=== PATIENT | female | born 1940 | race Caucasian/White ===

== ENCOUNTER 2019-06-01 10:01 | Inpatient (IN) | payer MEDICARE, BC, MEDICAID ==
[2019-06-01] MEDS ORDERED: cefTRIAXone 2 GM Vial IVPUSH ONE (11:19)
[2019-06-01 11:21] LABS: ANION GAP 14.4 mmol/L (10-20); CHLORIDE,CL 105 mmol/L (98-107); SODIUM,NA 144 mmol/L (136-145)
[2019-06-01] MEDS ORDERED: Sodium Chloride 0.9% 1,000 ML IV ONE (11:51)
--- NOTE | 2019-06-01 11:55 | CR ---
[id number] RAD/RAD Chest PA or AP 1V EXAM: RAD Chest PA or AP 1V INDICATION: WEAKNESS. COMPARISON: None. DISCUSSION: Cardiomediastinal silhouette is normal in size and contour. No infiltrate, effusion, pneumothorax, or edema. IMPRESSION: Negative examination of the chest. Nick Humphrey MD 06/01/19 1154 Thank you for allowing us to participate in the care of your patient.
--- NOTE | 2019-06-01 12:00 | EDM.PDOC ---
ED HPI GENERAL MEDICAL PROBLEM - General Chief Complaint: General Stated Complaint: NOT FEELING WELL Time Seen by Provider: 06/01/19 10:22 Source of Information: Reports: Patient History Limitations: Reports: No Limitations - History of Present Illness INITIAL COMMENTS - FREE TEXT/NARRATIVE: Pt. presents to ER with complaints of weakness and not feeling well. Pt. called 911 as she was unable to get up and ambulate on her own. Pt. lives by herself in an apartment. EMS and PD staff relate that the living conditions were unsanitary at the residence. Pt. was notably confused, unable to find words and globally weak but did not have any focal findings such as unilateral weakness, facial droop, or pronator drift. Pt. states that she has been feeling poorly for several days. She had been soiling herself as she had been unable to get up to use the toilet. Pt. denies any chest pain or shortness of breath. No abdominal pain. No nausea, vomiting, or diarrhea. Denies any neck stiffness. No sore throat or dental pain. Location: Reports: Lower Extremity, Right, Generalized - Related Data Allergies Allergy/AdvReac Type Severity Reaction Status Date / Time No Known Allergies Allergy Verified 06/04/16 10:54 Home Meds: Home Meds Alendronate Sodium [Fosamax] 70 mg PO WEEKLY 06/04/16 [History] Aspirin [Halfprin] 81 mg PO DAILY 06/04/16 [History] Canagliflozin [Invokana] 300 mg PO DAILY 06/04/16 [History] Cholecalciferol (Vitamin D3) [Vitamin D3] 2,000 units PO DAILY 06/04/16 [History ] Fish Oil/[place]-3 Fatty Acids [Fish Oil 1,000 MG] 1,000 mg PO DAILY 06/04/16 [ History] Lisinopril 20 mg PO DAILY 06/04/16 [History] Nystatin [Nystatin Crm] 1 applic TOP BID 06/04/16 [History] SitaGLIPtin [Januvia] 100 mg PO DAILY 06/04/16 [History] glipiZIDE [Glipizide ER] 10 mg PO BID 06/04/16 [History] metFORMIN HCl [Metformin HCl] 1,000 mg PO BID 06/04/16 [History] Past Medical History HEENT History: Reports: Cataract, Other (See Below) Other HEENT History: PRESBYOPIA, ASTIGMATISM, MYOPIA, POOR DENTITION Cardiovascular History: Reports: High Cholesterol, Hypertension Genitourinary History: Reports: Other (See Below) Other Genitourinary History: URINARY FREQUENCY Musculoskeletal History: Reports: Osteoporosis Neurological History: Reports: Neuropathy, Diabetic, Other (See Below) Other Neuro History: COGNITIVE IMPAIRMENT Endocrine/Metabolic History: Reports: Diabetes, Type II Hematologic History: Reports: Anemia, Iron Deficiency Dermatologic History: Reports: Eczema, Other (See Below) Other Dermatologic History: CONTACT DERMATITS. DYSTROPHIC NAIL, - Past Surgical History Musculoskeletal Surgical History: Reports: Other (See Below) Other Musculoskeletal Surgeries/Procedures:: OPEN REDUCTION INTERNAL FIXATION OF HUMERUS ED ROS GENERAL - Review of Systems Review Of Systems: See Below Constitutional: Reports: No Symptoms HEENT: Reports: Other (Poor dentition, denies any dental of throat pain) Respiratory: Reports: No Symptoms Cardiovascular: Reports: No Symptoms Endocrine: Reports: No Symptoms GI/Abdominal: Reports: No Symptoms. Denies: Diarrhea, Hematemesis, Hematochezia , Melena : Reports: No Symptoms Musculoskeletal: Reports: No Symptoms Skin: Reports: No Symptoms Neurological: Reports: Confusion, Weakness Psychiatric: Reports: No Symptoms Hematologic/Lymphatic: Reports: No Symptoms Immunologic: Reports: No Symptoms ED EXAM, GENERAL - Physical Exam Exam: See Below Exam Limited By: No Limitations General Appearance: Alert, WD/WN, No Apparent Distress Eye Exam: Bilateral Eye: EOMI, Normal Fundi, Normal Inspection, PERRL Ears: Normal External Exam, Normal TMs (dermatitis to both canals) Ear Exam: Bilateral Ear: Auricle Normal, TM normal Nose: Normal Inspection, Normal Mucosa, No Blood Throat/Mouth: Other (severe decay to numerous teeth. No obvious abscess formation. Hypopharynx is normal. Cheeks are flushed) Head: Atraumatic, Normocephalic Neck: Normal Inspection, Supple, Non-Tender, Full Range of Motion, Other (No neuchal rigidity) Respiratory/Chest: No Respiratory Distress Cardiovascular: Normal Peripheral Pulses Peripheral Pulses: 3+: Dorsalis Pedis (L), Dorsalis Pedis (R), 4+: Radial (L), Radial (R) GI/Abdominal: Normal Bowel Sounds, Soft, Non-Tender, No Organomegaly, No Distention, No Mass (Female) Exam: Deferred Rectal (Female) Exam: Deferred Back Exam: Normal Inspection, Full Range of Motion Extremities: Normal Inspection, Normal Range of Motion, Non-Tender, No Pedal Edema, Normal Capillary Refill Neurological: Alert, Oriented, CN II-XII Intact, Normal Cognition, Normal Gait, Normal Reflexes, No Motor/Sensory Deficits Psychiatric: Normal Affect, Normal Mood Skin Exam: Warm, Dry, Intact, Normal Color, No Rash Lymphatic: No Adenopathy EKG INTERPRETATION Rhythm: NSR Crescent: Normal P-Wave: Present QRS: Normal ST-T: Normal QT: Normal Course - Orders/Labs/Meds Orders: Active Orders 24 hr Category Date Time Status EKG Documentation Completion [RC] STAT Care 06/01/19 10:25 Active Chest 1V Frontal [CR] Stat Exams 06/01/19 10:26 Taken CULTURE BLOOD [BC] Stat Lab 06/01/19 10:38 Received CULTURE BLOOD [BC] Stat Lab 06/01/19 10:47 Received Sodium Chloride 0.9% [Normal Saline] 1,000 ml Med 06/01/19 11:51 Ordered IV ASDIRECTED Blood Culture x2 Reflex Set [OM.PC] Stat Oth 06/01/19 10:26 Ordered Medication Orders Sodium Chloride (Normal Saline) 1,000 mls @ 150 mls/hr IV ASDIRECTED ONE Stop: 06/01/19 18:30 Labs: Laboratory Tests 06/01/19 06/01/19 06/01/19 Range/Units 10:20 10:38 10:38 WBC 12.4 H (4.0-10.0) x10^3/uL RBC 5.16 (4.00-5.50) x10^6/uL Hgb 15.9 (12.0-16.0) g/dL Hct 47.8 H (33.0-47.0) % MCV 92.6 (78.0-93.0) fL MCH 30.8 (26.0-32.0) pg MCHC 33.3 (32.0-36.0) g/dL RDW Coeff of Pauline 12.9 (10.0-15.0) % Plt Count 247 (130-400) x10^3/uL Neut % (Auto) 88.4 H (50.0-80.0) % Lymph % (Auto) 7.5 L (25.0-50.0) % [place] % (Auto) 3.6 (2.0-11.0) % Eos % (Auto) 0.3 (0.0-4.0) % Baso % (Auto) 0.2 (0.2-1.2) % PT 10.4 (10.0-12.8) SEC INR 0.9 L (2.0-3.5) Sodium (136-145) mmol/L Potassium (3.5-5.1) mmol/L Chloride (98-107) mmol/L Carbon Dioxide (21-32) mmol/L Anion Gap (10-20) mmol/L BUN (7-18) mg/dL Creatinine (0.55-1.02) mg/dL Est Cr Clr Drug Dosing Estimated GFR (MDRD) Glucose (74-106) mg/dL POC Glucose 64 L (74-106) mg/dL Lactic Acid (0.4-2.0) mmol/L Calcium (8.5-10.1) mg/dL Corrected Calcium (8.5-10.1) mg/dL Phosphorus (2.6-4.7) mg/dL Magnesium (1.8-2.4) mg/dL Total Bilirubin (0.2-1.0) mg/dL AST (15-37) U/L ALT (14-59) U/L Alkaline Phosphatase (46-116) U/L Troponin I (<=0.056) ng/mL C-Reactive Protein (<=0.9) mg/dL NT-Pro-B Natriuret Pep (<=450) pg/mL Total Protein (6.4-8.2) g/dL Albumin (3.4-5.0) g/dL Globulin Albumin/Globulin Ratio Urine Color (YELLOW) Urine Appearance (CLEAR) Urine pH (5.0-8.0) Ur Specific [place] Urine Protein (NEGATIVE) mg/dL Urine Glucose (UA) (NEGATIVE) mg/dL Urine Ketones (NEGATIVE) mg/dL Urine Occult Blood (NEGATIVE) Urine Nitrite (NEGATIVE) Urine Bilirubin (NEGATIVE) Urine Urobilinogen (0.2) EU/dL Ur Leukocyte Esterase (NEGATIVE) Urine RBC (NOT SEEN) /HPF Urine WBC (NOT SEEN) /HPF Ur Squamous Epith Cells (NEGATIVE) /HPF Urine Bacteria (NEGATIVE) /HPF Urine Mucus (NEGATIVE) /LPF 06/01/19 06/01/19 06/01/19 Range/Units 10:38 10:38 11:12 WBC (4.0-10.0) x10^3/uL RBC (4.00-5.50) x10^6/uL Hgb (12.0-16.0) g/dL Hct (33.0-47.0) % MCV (78.0-93.0) fL MCH (26.0-32.0) pg MCHC (32.0-36.0) g/dL RDW Coeff of Pauline (10.0-15.0) % Plt Count (130-400) x10^3/uL Neut % (Auto) (50.0-80.0) % Lymph % (Auto) (25.0-50.0) % [place] % (Auto) (2.0-11.0) % Eos % (Auto) (0.0-4.0) % Baso % (Auto) (0.2-1.2) % PT (10.0-12.8) SEC INR (2.0-3.5) Sodium 144 (136-145) mmol/L Potassium 4.4 (3.5-5.1) mmol/L Chloride 105 (98-107) mmol/L Carbon Dioxide 29 (21-32) mmol/L Anion Gap 14.4 (10-20) mmol/L BUN 15 (7-18) mg/dL Creatinine 0.8 (0.55-1.02) mg/dL Est Cr Clr Drug Dosing TNP Estimated GFR (MDRD) > 60 Glucose 75 (74-106) mg/dL POC Glucose (74-106) mg/dL Lactic Acid 1.6 (0.4-2.0) mmol/L Calcium 9.6 (8.5-10.1) mg/dL Corrected Calcium 9.52 (8.5-10.1) mg/dL Phosphorus 3.9 (2.6-4.7) mg/dL Magnesium 1.6 L (1.8-2.4) mg/dL Total Bilirubin 0.5 (0.2-1.0) mg/dL AST 18 (15-37) U/L ALT 21 (14-59) U/L Alkaline Phosphatase 50 (46-116) U/L Troponin I < 0.017 (<=0.056) ng/mL C-Reactive Protein < 0.2 (<=0.9) mg/dL NT-Pro-B Natriuret Pep 115 (<=450) pg/mL Total Protein 8.0 (6.4-8.2) g/dL Albumin 4.1 (3.4-5.0) g/dL Globulin 3.9 Albumin/Globulin Ratio 1.05 Urine Color Yellow (YELLOW) Urine Appearance Cloudy H (CLEAR) Urine pH 5.5 (5.0-8.0) Ur Specific [place] 1.020 Urine Protein 30 H (NEGATIVE) mg/dL Urine Glucose (UA) 500 H (NEGATIVE) mg/dL Urine Ketones 15 H (NEGATIVE) mg/dL Urine Occult Blood Small H (NEGATIVE) Urine Nitrite Negative (NEGATIVE) Urine Bilirubin Negative (NEGATIVE) Urine Urobilinogen 0.2 (0.2) EU/dL Ur Leukocyte Esterase Small H (NEGATIVE) Urine RBC 10-20 H (NOT SEEN) /HPF Urine WBC 20-30 H (NOT SEEN) /HPF Ur Squamous Epith Cells Few H (NEGATIVE) /HPF Urine Bacteria Moderate H (NEGATIVE) /HPF Urine Mucus Rare H (NEGATIVE) /LPF Meds: Medications Generic Name Dose Route Start Last Admin Trade Name Freq PRN Reason Stop Dose Admin Sodium Chloride 1,000 mls @ 150 mls/hr 06/01/19 11:51 Normal Saline IV 06/01/19 18:30 ASDIRECTED ONE Discontinued Medications Generic Name Dose Route Start Last Admin Trade Name Freq PRN Reason Stop Dose Admin Ceftriaxone Sodium 2 gm 06/01/19 11:19 Rocephin IVPUSH 06/01/19 11:20 STAT ONE - Radiology Interpretation Free Text/Narrative:: Chest x-ray negative for acute pathology Departure - Departure Time of Disposition: 12:33 Disposition: Home, Self-Care 01 Condition: Fair Clinical Impression: UTI (urinary tract infection), Weakness - Discharge Information Referrals: Isela Rudolhp MD [Primary Care Provider] - - Problem List Review Problem List Initiated/Reviewed/Updated: Yes - My Orders Last 24 Hours: My Active Orders 06/01/19 10:25 EKG Documentation Completion [RC] STAT 06/01/19 10:26 Chest 1V Frontal [CR] Stat Blood Culture x2 Reflex Set [OM.PC] Stat 06/01/19 10:38 CULTURE BLOOD [BC] Stat 06/01/19 10:47 CULTURE BLOOD [BC] Stat 06/01/19 11:51 Sodium Chloride 0.9% [Normal Saline] 1,000 ml IV ASDIRECTED - Assessment/Plan Last 24 Hours: My Active Orders 06/01/19 10:25 EKG Documentation Completion [RC] STAT 06/01/19 10:26 Chest 1V Frontal [CR] Stat Blood Culture x2 Reflex Set [OM.PC] Stat 06/01/19 10:38 CULTURE BLOOD [BC] Stat 06/01/19 10:47 CULTURE BLOOD [BC] Stat 06/01/19 11:51 Sodium Chloride 0.9% [Normal Saline] 1,000 ml IV ASDIRECTED Plan: Pt. will be admitted acutely. CT brain without contrast is pending. [facility] Cherry will be admitting for Dr. Rudolph. Pt. was given rocephin 2 gm IV. She was started on NS at 150ml/hr.
--- NOTE | 2019-06-01 13:37 | CT ---
[id number] CT/CT Head WO IV EXAM: CT Head WO IV CLINICAL DATA: CHANGE IN MENTAL STATUS COMPARISON: CORRELATION IS MADE WITH THE EXAM OF NOVEMBER 02, 2018. FINDINGS: There is no mass or mass effect. There is no hemorrhage or hydrocephalus. There are no extra-axial fluid collections. There are no sites of abnormal attenuation. IMPRESSION: NO PLAIN CT EVIDENCE OF ACUTE INTRACRANIAL PROCESS. Enoch Monte MD 06/01/19 1164 Thank you for allowing us to participate in the care of your patient.
--- NOTE | 2019-06-01 16:17 | PCM.HP.2 ---
H&P History of Present Illness - General Date of Service: 06/01/19 Admit Problem/Dx: Admission Diagnosis/Problem Admission Diagnosis/Problem UTI, Urinary tract infectious disease Source of Information: Patient, EMS - History of Present Illness Initial Comments - Free Text/Narative: Chief complaint: Not feeling well. History of present illness: Patient called 911 earlier today, she had some sort of fall she denies any syncope. She was weak and unable to get up. She had abrasion to her right hatch able to full weight-bear and walk normally now. Emergency responders noted her place was quite unsanitary. The patient has a known chronic history of this with hoarding behavior. Social work has had concerns in the past about her being a vulnerable adult secondary to this and her memory issues. There were no focal stroke symptoms. Her sugar was low 64 on arrival. She has somewhat of a complicated diabetes regimen, she doesn't get her meds every day, only gets seeing home health that day, can't do many meals on her own. Nothing very focal seen by head CT, chest x-ray. Did have mild pyuria but she denies any dysuria or fever. Past medical history: Diabetes mellitus two uncontrolled, brittle. Noncompliance, poor dentition, hoarding behavior, cognitive decline/dysfunction , weight loss/underweight, hypertension, B-12 deficiency, neurodermatitis. Medications namzaric, B-12, farxiga, metformin, ozempic, Lantus, glipizide, lisinopril, Lipitor, triamcinolone cream, aspirin, vitamin D. Allergies: No known drug allergies. Social history: She lives alone, she has no family in the area, she does not smoke. Review of systems: Denies chest pain denies dyspnea and denies fever denies dysuria denies diarrhea denies abdominal pain denies vomiting. Physical exam: Temperature 36.5 Celsius, pulse 93, blood pressure 135/80. Alert smiling sitting on bed no distress, ambulates to the bathroom without difficulty. Head is atraumatic. Somewhat poor dentition otherwise oral mucosa pink and moist. Heart and lungs clear to auscultation, abdomen soft nontender, kyphosis of spine. Extremities warm well perfused. She has some abrasions versus excoriations throughout most of right anterior hatch. Otherwise no significant can bruising swelling or inflammation here. She states month is March instead of May 10 years 2019 instead of 2019. Assessment and plan: Weakness NOS. Etiology not clear. With her inability to monitor her sugars and complicated medication regimen it is possible she washaving symptoms of a hypoglycemic spell that worsened her chronic cognitive dysfunction. Recheck B-12 and TSH. Will treat pyuria with antibiotic otherwise no clear UTI symptoms per se. Monitor sugars closely here. She has a chronic failure to thrive, unable to manage her chronic medication regimen, unable to manic chronic hygiene meals and ADLs at home and likely moderate dementia. Consult social work and PT. I believe they've recommended NH or similar placement in the past due to concern for safety. - Related Data Allergies/Adverse Reactions: Allergies Allergy/AdvReac Type Severity Reaction Status Date / Time No Known Allergies Allergy Verified 06/01/19 13:19 Home Medications: Home Meds Aspirin [Halfprin] 81 mg PO DAILY 06/04/16 [History] Cholecalciferol (Vitamin D3) [Vitamin D3] 2,000 units PO DAILY 06/04/16 [History ] Lisinopril 20 mg PO DAILY 06/04/16 [History] glipiZIDE [Glipizide ER] 20 mg PO DAILY 06/04/16 [History] Cyanocobalamin (Vitamin B-12) [Vitamin B-12] 1,000 mcg SQ Q30D 06/01/19 [History ] Dapagliflozin Propanediol [Farxiga] 10 mg PO DAILY 06/01/19 [History] Insulin Glarg,Human.Rec.Analog [Lantus Solostar] 10 units SQ DAILY 06/01/19 [ History] Memantine HCl/Donepezil HCl [Namzaric 7 mg-10 mg Capsule] 1 tab PO DAILY [History] Semaglutide [Ozempic] 1 mg SQ Q7D 06/01/19 [History] Triamcinolone Acetonide [Triamcinolone Acetonide 0.5% Oint] 1 applic TOP BID PRN 06/01/19 [History] atorvaSTATin [Lipitor] 10 mg PO DAILY 06/01/19 [History] metFORMIN HCl [Riomet] 10 units PO DAILY 06/01/19 [History] Past Medical History HEENT History: Reports: Cataract, Other (See Below) Other HEENT History: PRESBYOPIA, ASTIGMATISM, MYOPIA, POOR DENTITION Cardiovascular History: Reports: High Cholesterol, Hypertension Genitourinary History: Reports: Other (See Below) Other Genitourinary History: URINARY FREQUENCY Musculoskeletal History: Reports: Osteoporosis Neurological History: Reports: Neuropathy, Diabetic, Other (See Below) Other Neuro History: COGNITIVE IMPAIRMENT Endocrine/Metabolic History: Reports: Diabetes, Type II Hematologic History: Reports: Anemia, Iron Deficiency Dermatologic History: Reports: Eczema, Other (See Below) Other Dermatologic History: CONTACT DERMATITS. DYSTROPHIC NAIL, - Past Surgical History Musculoskeletal Surgical History: Reports: Other (See Below) Other Musculoskeletal Surgeries/Procedures:: OPEN REDUCTION INTERNAL FIXATION OF HUMERUS Social & Family History - Tobacco Use Smoking Status *Q: Never Smoker Second Hand Smoke Exposure: Yes - Caffeine Use Caffeine Use: Reports: Coffee - Recreational Drug Use Recreational Drug Use: No H&P Review of Systems - Review of Systems: Review Of Systems: See Below Exam - Exam Exam: See Below - Vital Signs Vital Signs: Last Vital Signs Temp 36.7 C 06/01/19 12:15 Pulse 93 06/01/19 12:15 Resp 16 06/01/19 12:15 BP 138/82 06/01/19 12:15 Pulse Ox 100 06/01/19 12:15 Weight: 49.079 kg - Patient Data Lab Results Last 24 hrs: Laboratory Results - last 24 hr 06/01/19 06/01/19 06/01/19 Range/Units 10:20 10:38 10:38 WBC 12.4 H (4.0-10.0) x10^3/uL RBC 5.16 (4.00-5.50) x10^6/uL Hgb 15.9 (12.0-16.0) g/dL Hct 47.8 H (33.0-47.0) % MCV 92.6 (78.0-93.0) fL MCH 30.8 (26.0-32.0) pg MCHC 33.3 (32.0-36.0) g/dL RDW Coeff of Pauline 12.9 (10.0-15.0) % Plt Count 247 (130-400) x10^3/uL Neut % (Auto) 88.4 H (50.0-80.0) % Lymph % (Auto) 7.5 L (25.0-50.0) % [place] % (Auto) 3.6 (2.0-11.0) % Eos % (Auto) 0.3 (0.0-4.0) % Baso % (Auto) 0.2 (0.2-1.2) % PT 10.4 (10.0-12.8) SEC INR 0.9 L (2.0-3.5) Sodium (136-145) mmol/L Potassium (3.5-5.1) mmol/L Chloride (98-107) mmol/L Carbon Dioxide (21-32) mmol/L Anion Gap (10-20) mmol/L BUN (7-18) mg/dL Creatinine (0.55-1.02) mg/dL Est Cr Clr Drug Dosing Estimated GFR (MDRD) Glucose (74-106) mg/dL POC Glucose 64 L (74-106) mg/dL Lactic Acid (0.4-2.0) mmol/L Calcium (8.5-10.1) mg/dL Corrected Calcium (8.5-10.1) mg/dL Phosphorus (2.6-4.7) mg/dL Magnesium (1.8-2.4) mg/dL Total Bilirubin (0.2-1.0) mg/dL AST (15-37) U/L ALT (14-59) U/L Alkaline Phosphatase (46-116) U/L Troponin I (<=0.056) ng/mL C-Reactive Protein (<=0.9) mg/dL NT-Pro-B Natriuret Pep (<=450) pg/mL Total Protein (6.4-8.2) g/dL Albumin (3.4-5.0) g/dL Globulin Albumin/Globulin Ratio Urine Color (YELLOW) Urine Appearance (CLEAR) Urine pH (5.0-8.0) Ur Specific [place] Urine Protein (NEGATIVE) mg/dL Urine Glucose (UA) (NEGATIVE) mg/dL Urine Ketones (NEGATIVE) mg/dL Urine Occult Blood (NEGATIVE) Urine Nitrite (NEGATIVE) Urine Bilirubin (NEGATIVE) Urine Urobilinogen (0.2) EU/dL Ur Leukocyte Esterase (NEGATIVE) Urine RBC (NOT SEEN) /HPF Urine WBC (NOT SEEN) /HPF Ur Squamous Epith Cells (NEGATIVE) /HPF Urine Bacteria (NEGATIVE) /HPF Urine Mucus (NEGATIVE) /LPF 06/01/19 06/01/19 06/01/19 Range/Units 10:38 10:38 11:12 WBC (4.0-10.0) x10^3/uL RBC (4.00-5.50) x10^6/uL Hgb (12.0-16.0) g/dL Hct (33.0-47.0) % MCV (78.0-93.0) fL MCH (26.0-32.0) pg MCHC (32.0-36.0) g/dL RDW Coeff of Pauline (10.0-15.0) % Plt Count (130-400) x10^3/uL Neut % (Auto) (50.0-80.0) % Lymph % (Auto) (25.0-50.0) % [place] % (Auto) (2.0-11.0) % Eos % (Auto) (0.0-4.0) % Baso % (Auto) (0.2-1.2) % PT (10.0-12.8) SEC INR (2.0-3.5) Sodium 144 (136-145) mmol/L Potassium 4.4 (3.5-5.1) mmol/L Chloride 105 (98-107) mmol/L Carbon Dioxide 29 (21-32) mmol/L Anion Gap 14.4 (10-20) mmol/L BUN 15 (7-18) mg/dL Creatinine 0.8 (0.55-1.02) mg/dL Est Cr Clr Drug Dosing TNP Estimated GFR (MDRD) > 60 Glucose 75 (74-106) mg/dL POC Glucose (74-106) mg/dL Lactic Acid 1.6 (0.4-2.0) mmol/L Calcium 9.6 (8.5-10.1) mg/dL Corrected Calcium 9.52 (8.5-10.1) mg/dL Phosphorus 3.9 (2.6-4.7) mg/dL Magnesium 1.6 L (1.8-2.4) mg/dL Total Bilirubin 0.5 (0.2-1.0) mg/dL AST 18 (15-37) U/L ALT 21 (14-59) U/L Alkaline Phosphatase 50 (46-116) U/L Troponin I < 0.017 (<=0.056) ng/mL C-Reactive Protein < 0.2 (<=0.9) mg/dL NT-Pro-B Natriuret Pep 115 (<=450) pg/mL Total Protein 8.0 (6.4-8.2) g/dL Albumin 4.1 (3.4-5.0) g/dL Globulin 3.9 Albumin/Globulin Ratio 1.05 Urine Color Yellow (YELLOW) Urine Appearance Cloudy H (CLEAR) Urine pH 5.5 (5.0-8.0) Ur Specific [place] 1.020 Urine Protein 30 H (NEGATIVE) mg/dL Urine Glucose (UA) 500 H (NEGATIVE) mg/dL Urine Ketones 15 H (NEGATIVE) mg/dL Urine Occult Blood Small H (NEGATIVE) Urine Nitrite Negative (NEGATIVE) Urine Bilirubin Negative (NEGATIVE) Urine Urobilinogen 0.2 (0.2) EU/dL Ur Leukocyte Esterase Small H (NEGATIVE) Urine RBC 10-20 H (NOT SEEN) /HPF Urine WBC 20-30 H (NOT SEEN) /HPF Ur Squamous Epith Cells Few H (NEGATIVE) /HPF Urine Bacteria Moderate H (NEGATIVE) /HPF Urine Mucus Rare H (NEGATIVE) /LPF Result Diagrams: 06/01/19 10:38 06/01/19 10:38 Kyle Results Last 24 hrs: Microbiology 06/01/19 11:45 Group A Streptococcus Rapid Screen - Final Throat NEGATIVE STREP A SCREEN REFERENCE RANGE: NEGATIVE Problem List Initiated/Reviewed/Updated: Yes Orders Last 24hrs: Active Orders 24 hr Category Date Time Status Patient Status [ADT] Routine ADT 06/01/19 12:04 Active ADA Diabetic [[place] [employer] Diet] [DIET Diet 06/01/19 Dinner Active ] CULTURE BLOOD [BC] Stat Lab 06/01/19 10:38 Received CULTURE BLOOD [BC] Stat Lab 06/01/19 10:47 Received CULTURE STREP A CONFIRMATION [RM] Stat Lab 06/01/19 11:45 Results CULTURE URINE [] Stat Lab 06/01/19 11:12 Received STREP SCRN A RAPID W CULT CONF [] Stat Lab 06/01/19 11:45 Results Sodium Chloride 0.9% [Normal Saline] 1,000 ml Med 06/01/19 11:51 Active IV ASDIRECTED Blood Culture x2 Reflex Set [OM.PC] Stat Oth 06/01/19 10:26 Ordered Code Status [Resuscitation Status] Routine Resus Stat 06/01/19 13:59 Ordered Medication Orders Sodium Chloride (Normal Saline) 1,000 mls @ 150 mls/hr IV ASDIRECTED ONE Stop: 06/01/19 18:30 Last Admin: 06/01/19 12:03 Dose: 150 mls/hr
[2019-06-01] MEDS ORDERED: Ondansetron 4 MG/2 ML SDV IV PRN (16:19)
[2019-06-01] MEDS ORDERED: Acetaminophen 325 MG Tab PO PRN (16:19)
[2019-06-01] MEDS ORDERED: Magnesium Sulfate/Water 2 GM in Premix Bag 1 BAG IV ONE (16:23)
[2019-06-01] MEDS ORDERED: Cephalexin 500 MG Cap PO ONE (16:24)
[2019-06-02 07:06] LABS: CHLORIDE,CL 108 mmol/L (98-107); SODIUM,NA 144 mmol/L (136-145)
[2019-06-02 07:07] LABS: ANION GAP 11.4 mmol/L (10-20)
[2019-06-02] MEDS: Cholecalciferol (Vitamin D3) 25 MCG Tab PO SCH (07:48)
[2019-06-02] MEDS: Lisinopril 20 MG Tab PO SCH (07:48)
[2019-06-02] MEDS: atorvaSTATin 10 MG Tab PO SCH (07:48)
[2019-06-02] MEDS: Aspirin 81 MG Tab.EC PO SCH (07:48)
[2019-06-02] MEDS ORDERED: Insulin Glargine,Human Rec. Analog 100 Units/ML 3 ML Pen SUBCUT SCH (08:00)
[2019-06-02] MEDS: cefTRIAXone 1 GM Vial IVPUSH SCH (09:17)
--- NOTE | 2019-06-02 09:30 | PN ---
Progress Note for ANASTASIIA CHAPMAN Date: 06/02/2019 Room #: VM.211 SUBJECTIVE: The patient is at her second hospital day. She was admitted yesterday with weakness and found to have a UTI. She was noted to have dementia, confusion. She has a very poor unsanitary living condition at home. We have had [facility] work with her to try get her medication. She is diabetic, on insulin, and she was having problems with high blood sugars, but a lot of it was felt to be due to noncompliance. She had recently been switched to oral metformin because the size of the pills was too big for her to take, as well as she had been on Aricept, but was not taking it and she was switched to Namzaric, which is a combination of memantine as well as Aricept. The patient denies pain today. She still feels a little bit weak. OBJECTIVE: Vital Signs: Her weight has not been taken today. Her temperature is 36.5, blood pressure is 133/56, pulse is 85, respiratory rate 16, and saturations are 98%. General: She is alert. She appears flushed on her face. Heart: Regular rate and rhythm. Lungs: Clear to auscultation. Abdomen: Soft. She does have excoriations on her skin, on her arms as well as her right anterior leg. Neurologic: She appears slightly weak, but does walk with a walker. Psychiatric: Psych santoyo, she is very forgetful. She recognizes who I am. She is also somewhat suspicious. LABORATORY DATA: Her urine shows a Gram-negative wilder. Her white blood cell count is improved to 8.5, hemoglobin is stable at 15.2, platelets 227 with 73 segs, 18 lymphs. Sodium 144, potassium 4.4, creatinine 0.8, GFR greater than 60. Blood sugar yesterday on admission was low at 64, it was up to 132, now it is down to 94. Her LFTs were normal. Her CRP is normal, less than 0.2. Albumin is 3.5. TSH is 1.1. IMPRESSION: 1. Urinary tract infection. 2. Confusion, multifactorial. 3. Type 2 diabetes mellitus, poorly controlled. 4. Hypertension. 5. Hypercholesterolemia. 6. Neurodermatitis. 7. Hypertension. PLAN: We will have OT and PT see the patient. She will be continued on IV Rocephin. I do not feel the patient is safe to return to live at her home environment and she needs placement most likely in a [facility] due to affordability. We will need to closely monitor her blood sugars as she may not need as much diabetic medication. She had been started on Ozempic GLP-1 to help with blood sugars. The patient is full code status right now. We will apply some occlusive dressings for skin ulcers to help them with healing as well. GM06/02/2019 08:30:08 MODL: 06/02/2019 09:16:11 /[id number]
[2019-06-02] MEDS: DONEPEZIL HCL PO SCH (12:24)
[2019-06-02] MEDS: METFORMIN HCL PO SCH (12:24)
[2019-06-02] MEDS: MEMANTINE HCL PO SCH (12:24)
[2019-06-02] MEDS: DAPAGLIFLOZIN PROPANEDIOL 10 MG PO SCH (12:24)
[2019-06-02] MEDS ORDERED: Glucagon,Human Recombinant 1 MG Vial IM PRN (12:38)
[2019-06-02] MEDS ORDERED: Triamcinolone Acetonide 0.1% Crm 15 GM Tube TOP PRN (13:30)
[2019-06-02] MEDS: Multivitamin, Stress Formula with Zinc Tab PO SCH (17:05)
[2019-06-03 07:27] LABS: ANION GAP 12.3 mmol/L (10-20)
[2019-06-03] MEDS: Insulin Glargine,Human Rec. Analog 100 Units/ML 3 ML Pen SUBCUT SCH (08:00)
[2019-06-03] MEDS: Cholecalciferol (Vitamin D3) 25 MCG Tab PO SCH (08:01)
[2019-06-03] MEDS: atorvaSTATin 10 MG Tab PO SCH (08:01)
[2019-06-03] MEDS: cefTRIAXone 1 GM Vial IVPUSH SCH (08:01)
[2019-06-03] MEDS: Multivitamin, Stress Formula with Zinc Tab PO SCH (08:01)
[2019-06-03] MEDS: Aspirin 81 MG Tab.EC PO SCH (08:01)
[2019-06-03] MEDS: METFORMIN HCL PO SCH (08:03)
[2019-06-03] MEDS: DAPAGLIFLOZIN PROPANEDIOL 10 MG PO SCH (08:04)
[2019-06-03] MEDS: DONEPEZIL HCL PO SCH (08:04)
[2019-06-03] MEDS: MEMANTINE HCL PO SCH (08:04)
[2019-06-03] MEDS: Lisinopril 20 MG Tab PO SCH (08:05)
[2019-06-03] MEDS ORDERED: Aluminum Hydroxide/Magnesium Hydroxide/Simethicone Susp 30 ML Cup PO PRN (08:23)
--- NOTE | 2019-06-03 11:04 | PN ---
Progress Note for ANASTASIIA CHAPMAN Date: 06/03/2019 Room #: VM.211 SUBJECTIVE: Today is the patient's third hospital day after being admitted with confusion with UTI and weakness. The patient is noted to have dementia and has poor insight into how ill she is and was noted to have extremely poor hygiene in her home. She has been noncompliant with her medications, which we have had to order insulin for her blood sugars and concerns about being able to control her blood sugars. Over night, she was noted to be talking about her family, but then denies having family around. She is still awaiting assessment by OT as well as PT for strengthening. The patient has complained of being nauseated today. OBJECTIVE: Vital Signs: Today, her weight is 48.9 kg, which is about the same as her admission weight. Her temperature is 36.4, blood pressure is 123/71, pulse is 76, respirations are 16, saturations are 98%. Skin: Still slightly flushed. She does have excoriations present. Heart: Regular rate and rhythm. Lungs: Clear to auscultation. Abdomen: Soft. Questionably, slight epigastric discomfort. Neurologic: The patient is slightly weak still. Psychiatric: The patient is happy, but pleasantly forgetful. LABORATORY DATA: Her lab today shows her white blood cell count is stable at 7.0; hemoglobin is 14.5, slight drop; platelets are 238. Sodium 144, potassium 4.3, creatinine has increased slightly to 1.1. GFR has reduced to 48. Blood sugars this morning were down to 89, she did have some juice, went up to 150. IMPRESSION: 1. Urinary tract infection with Escherichia coli with many sensitivities except for penicillins. 2. Weakness due to urinary tract infection. 3. Dementia. 4. Unsafe home environment with the patient being a danger to herself due to her dementia. 5. Type 2 diabetes mellitus. 6. Neurodermatitis. PLAN: The patient needs to be in penitentiary care and/or having [employer] work with this. The patient will be switched to oral Macrobid, which will start tomorrow. We will watch for nausea as well as her renal function. If it tends to go up, she may need resumption of some IV fluids. Also, we will need to monitor her blood sugars to make certain she is not having problems with lows or too highs. Her hemoglobin A1c at the clinic last time had been up to 10. The patient may need the addition of antipsychotic such as Risperdal also to help if she tends to get more agitated. We will have Dr. Kelley cover the patient on the weekend. She may possibly be able to go to swing bed over the weekend, and we are awaiting assessments from OT and PT. GM06/03/2019 08:30:08 MODL: 06/03/2019 10:57:57 /[id number]
[2019-06-04 08:01] LABS: ANION GAP 12.3 mmol/L (10-20); CHLORIDE,CL 105 mmol/L (98-107); SODIUM,NA 144 mmol/L (136-145)
[2019-06-04] MEDS: Lisinopril 20 MG Tab PO SCH (08:22)
[2019-06-04] MEDS: Nitrofurantoin Monohydrate/Macrocrystalline 100 MG Cap PO SCH ×2 (08:22→19:40)
[2019-06-04] MEDS: Multivitamin, Stress Formula with Zinc Tab PO SCH (08:22)
[2019-06-04] MEDS: Cholecalciferol (Vitamin D3) 25 MCG Tab PO SCH (08:24)
[2019-06-04] MEDS: atorvaSTATin 10 MG Tab PO SCH (08:24)
[2019-06-04] MEDS: Aspirin 81 MG Tab.EC PO SCH (08:24)
[2019-06-04] MEDS: DONEPEZIL HCL PO SCH (08:26)
[2019-06-04] MEDS: MEMANTINE HCL PO SCH (08:26)
[2019-06-04] MEDS: DAPAGLIFLOZIN PROPANEDIOL 10 MG PO SCH (08:26)
[2019-06-04] MEDS: METFORMIN HCL PO SCH (08:26)
[2019-06-04] MEDS: Insulin Glargine,Human Rec. Analog 100 Units/ML 3 ML Pen SUBCUT SCH (08:27)
--- NOTE | 2019-06-04 17:51 | PCM.PN ---
- General Info Date of Service: 06/04/19 Admission Dx/Problem (Free Text): History: She is getting appropriate dressings on the excoriations on her arms and legs where she had been scratching. She denies that they were itching. She has significant dementia and will probably be going to swing bed or [facility] early in the week. She will get a PT and OT assessment to help determine that and I do not see a report yet from them. She has diabetes which has been poorly controlled. At one time 2 years ago her A1c was 7.7, but has been going up gradually, apparently as she became less accurate with her medications, was 10.3 and 11/06, 10.4 in 03/06, 12.1 in 05/06. Her blood sugar is 115 fasting today. It is felt she will be unlikely to be able to go home again. Exam: -Converses but accuracy of historical information very much in question -Lungs clear, no dyspnea -Heart sounds normal and regular -Extremities very thin, no edema, has excoriations over her arms and legs, now has them dressed Impression: -Recent UTI, with symptoms of increased confusion along with her regular dementia, being Rxd -I will delay moving to swing bed until the OT/PT report is done, she will probably move directly to the [facility] Plan: -Continue same regimen -Await PT/OT report - Patient Data Vitals - Most Recent: Last Vital Signs Temp 37.2 C 06/04/19 17:26 Pulse 86 06/04/19 17:26 Resp 16 06/04/19 17:26 BP 96/55 L 06/04/19 17:26 Pulse Ox 98 06/04/19 17:26 Weight - Most Recent: 47.718 kg I&O - Last 24 Hours: Intake & Output 06/04/19 06/04/19 06/04/19 06:59 14:59 22:59 Intake Total 100 120 Output Total 3 Balance 97 120 Lab Results Last 24 Hours: Laboratory Results - last 24 hr 06/03/19 06/04/19 06/04/19 Range/Units 20:07 06:46 07:20 WBC 7.1 (4.0-10.0) x10^3/uL RBC 4.99 (4.00-5.50) x10^6/uL Hgb 15.3 (12.0-16.0) g/dL Hct 46.7 (33.0-47.0) % MCV 93.6 H (78.0-93.0) fL MCH 30.7 (26.0-32.0) pg MCHC 32.8 (32.0-36.0) g/dL RDW Coeff of Pauline 13.1 (10.0-15.0) % Plt Count 242 (130-400) x10^3/uL Neut % (Auto) 64.9 (50.0-80.0) % Lymph % (Auto) 26.2 (25.0-50.0) % Clinch % (Auto) 7.5 (2.0-11.0) % Eos % (Auto) 1.3 (0.0-4.0) % Baso % (Auto) 0.1 L (0.2-1.2) % Sodium (136-145) mmol/L Potassium (3.5-5.1) mmol/L Chloride (98-107) mmol/L Carbon Dioxide (21-32) mmol/L Anion Gap (10-20) mmol/L BUN (7-18) mg/dL Creatinine (0.55-1.02) mg/dL Est Cr Clr Drug Dosing mL/min Estimated GFR (MDRD) Glucose (74-106) mg/dL POC Glucose 255 H 110 H (74-106) mg/dL Calcium (8.5-10.1) mg/dL Corrected Calcium (8.5-10.1) mg/dL Total Bilirubin (0.2-1.0) mg/dL AST (15-37) U/L ALT (14-59) U/L Alkaline Phosphatase (46-116) U/L C-Reactive Protein (<=0.9) mg/dL Total Protein (6.4-8.2) g/dL Albumin (3.4-5.0) g/dL Globulin Albumin/Globulin Ratio Amylase (25-115) U/L Lipase (73-393) U/L 06/04/19 06/04/19 Range/Units 07:20 11:06 WBC (4.0-10.0) x10^3/uL RBC (4.00-5.50) x10^6/uL Hgb (12.0-16.0) g/dL Hct (33.0-47.0) % MCV (78.0-93.0) fL MCH (26.0-32.0) pg MCHC (32.0-36.0) g/dL RDW Coeff of Pauline (10.0-15.0) % Plt Count (130-400) x10^3/uL Neut % (Auto) (50.0-80.0) % Lymph % (Auto) (25.0-50.0) % Clinch % (Auto) (2.0-11.0) % Eos % (Auto) (0.0-4.0) % Baso % (Auto) (0.2-1.2) % Sodium 144 (136-145) mmol/L Potassium 4.3 (3.5-5.1) mmol/L Chloride 105 (98-107) mmol/L Carbon Dioxide 31 (21-32) mmol/L Anion Gap 12.3 (10-20) mmol/L BUN 21 H (7-18) mg/dL Creatinine 0.9 (0.55-1.02) mg/dL Est Cr Clr Drug Dosing 38.81 mL/min Estimated GFR (MDRD) > 60 Glucose 115 H (74-106) mg/dL POC Glucose 168 H (74-106) mg/dL Calcium 9.6 (8.5-10.1) mg/dL Corrected Calcium 9.84 (8.5-10.1) mg/dL Total Bilirubin 0.6 (0.2-1.0) mg/dL AST 18 (15-37) U/L ALT 21 (14-59) U/L Alkaline Phosphatase 46 (46-116) U/L C-Reactive Protein < 0.2 (<=0.9) mg/dL Total Protein 7.1 (6.4-8.2) g/dL Albumin 3.7 (3.4-5.0) g/dL Globulin 3.4 Albumin/Globulin Ratio 1.09 Amylase 77 (25-115) U/L Lipase 325 (73-393) U/L Kyle Results Last 24 Hours: Microbiology 06/01/19 10:47 Aerobic Blood Culture - Preliminary Blood - Venous - Lab Draw NO GROWTH AFTER 3 DAYS Anaerobic Blood Culture - Preliminary NO GROWTH AFTER 3 DAYS 06/01/19 10:38 Aerobic Blood Culture - Preliminary Blood - Venous NO GROWTH AFTER 3 DAYS Anaerobic Blood Culture - Preliminary NO GROWTH AFTER 3 DAYS Med Orders - Current: Current Medications Acetaminophen (Tylenol) 650 mg PO Q4H PRN PRN Reason: Pain (Mild 1-3)/fever Al Hydroxide/Mg Hydroxide (Mag-Al Plus) 30 ml PO Q4H PRN PRN Reason: Nausea Aspirin (Halfprin) 81 mg PO DAILY [facility] Last Admin: 06/04/19 08:24 Dose: 81 mg Atorvastatin Calcium (Lipitor) 10 mg PO DAILY [facility] Last Admin: 06/04/19 08:24 Dose: 10 mg Cholecalciferol (Vitamin D3) 50 mcg PO DAILY [facility] Last Admin: 06/04/19 08:24 Dose: 50 mcg Glucagon (Glucagen) 1 mg IM ASDIRECTED PRN PRN Reason: Hypoglycemia Insulin Glargine (Lantus Solostar) 5 units SUBCUT DAILY [facility] Last Admin: 06/04/19 08:27 Dose: 5 units Lisinopril (Prinivil) 20 mg PO DAILY [facility] Last Admin: 06/04/19 08:22 Dose: 20 mg Nitrofurantoin Macrocrystals (Macrobid) 100 mg PO BID [facility] Stop: 06/09/19 08:01 Last Admin: 06/04/19 08:22 Dose: 100 mg Cyanocobalamin ( Vitamin B-12) [ Vitamin B-12] 1,000 Mcgown Med 1,000 mcg SQ Q30D [facility] Dapagliflozin Propanediol [Farxiga ] 10 MgOwn Med 10 mg PO DAILY [facility] Last Admin: 06/04/19 08:26 Dose: 10 mg Memantine Hcl/Donepezil Hcl [ Namzaric 7 Mg-10 Mg CapsuleOwn Med 1 tab PO DAILY [facility] Last Admin: 06/04/19 08:26 Dose: 1 tab Metformin Hcl [ Riomet] 1000mg/10ml* *Own Med 10 units PO DAILY [facility] Last Admin: 06/04/19 08:26 Dose: 10 units Semaglutide [Ozempic (] 1 MgOwn Med) 1 mg SQ Q7D [facility] Ondansetron HCl (Zofran) 4 mg IV Q6H PRN PRN Reason: Nausea/Vomiting Triamcinolone Acetonide (Triamcinolone Acetonide 0.1% Crm) 0 gm TOP BID PRN PRN Reason: RASH Vitamin B Complex/Vit C/Vit E/Zinc (Stress Formula With Zinc) 1 tab PO DAILY [facility] Last Admin: 06/04/19 08:22 Dose: 1 tab Discontinued Medications Ceftriaxone Sodium (Rocephin) 2 gm IVPUSH STAT ONE Stop: 06/01/19 11:20 Last Admin: 06/01/19 11:40 Dose: 2 gm Ceftriaxone Sodium (Rocephin) 1 gm IVPUSH DAILY [facility] Last Admin: 06/03/19 08:01 Dose: 1 gm Cephalexin (Keflex) 500 mg PO BID ONE Stop: 06/01/19 16:25 Last Admin: 06/01/19 18:14 Dose: 500 mg Sodium Chloride (Normal Saline) 1,000 mls @ 150 mls/hr IV ASDIRECTED ONE Stop: 06/01/19 18:30 Last Admin: 06/01/19 12:03 Dose: 150 mls/hr Magnesium Sulfate 2 gm/ Premix 50 mls @ 25 mls/hr IV ONETIME ONE Stop: 06/01/19 18:22 Last Admin: 06/01/19 18:14 Dose: 25 mls/hr Insulin Glargine (Lantus Solostar) 10 units SUBCUT DAILY [facility] Last Admin: 06/02/19 07:48 Dose: 10 units - Problem List Review Problem List Initiated/Reviewed/Updated: Yes
[2019-06-04] MEDS: Sodium Chloride 0.9% 10 ML Syringe FLUSH SCH (22:15)
[2019-06-05] MEDS: Lisinopril 20 MG Tab PO SCH (07:49)
[2019-06-05] MEDS: Multivitamin, Stress Formula with Zinc Tab PO SCH (07:49)
[2019-06-05] MEDS: Aspirin 81 MG Tab.EC PO SCH (07:49)
[2019-06-05] MEDS: atorvaSTATin 10 MG Tab PO SCH (07:51)
[2019-06-05] MEDS: Nitrofurantoin Monohydrate/Macrocrystalline 100 MG Cap PO SCH ×2 (07:52→19:50)
[2019-06-05] MEDS: Cholecalciferol (Vitamin D3) 25 MCG Tab PO SCH (07:53)
[2019-06-05] MEDS: METFORMIN HCL PO SCH (07:54)
[2019-06-05] MEDS: Insulin Glargine,Human Rec. Analog 100 Units/ML 3 ML Pen SUBCUT SCH (07:54)
[2019-06-05] MEDS: MEMANTINE HCL PO SCH (07:56)
[2019-06-05] MEDS: DONEPEZIL HCL PO SCH (07:56)
[2019-06-05] MEDS: DAPAGLIFLOZIN PROPANEDIOL 10 MG PO SCH (07:56)
[2019-06-05] MEDS: Sodium Chloride 0.9% 10 ML Syringe FLUSH SCH ×2 (08:00→19:55)
--- NOTE | 2019-06-05 15:50 | PCM.PN ---
- General Info Date of Service: 06/05/19 Admission Dx/Problem (Free Text): History: Vital signs good, continues to take Macrobid and is afebrile. Exam: Heart sounds normal Lungs clear Sitting up in chair She offers no verbal information spontaneously, mostly smiles Impression: UTI Dementia Plan: PT/OT reports still pending, should be a place available for her at [facility] tomorrow and she agrees in principal to moving there. - Patient Data Vitals - Most Recent: Last Vital Signs Temp 37.1 C 06/05/19 14:00 Pulse 86 06/05/19 14:00 Resp 16 06/05/19 14:00 BP 110/61 06/05/19 14:00 Pulse Ox 99 06/05/19 14:00 Weight - Most Recent: 48.534 kg I&O - Last 24 Hours: Intake & Output 06/05/19 06/05/19 06/05/19 06:59 14:59 22:59 Intake Total 250 480 Output Total 4 Balance 246 480 Lab Results Last 24 Hours: Laboratory Results - last 24 hr 06/04/19 06/04/19 06/05/19 Range/Units 17:16 19:37 10:30 POC Glucose 156 H 239 H 174 H (74-106) mg/dL Kyle Results Last 24 Hours: Microbiology 06/01/19 10:47 Aerobic Blood Culture - Preliminary Blood - Venous - Lab Draw NO GROWTH AFTER 4 DAYS Anaerobic Blood Culture - Preliminary NO GROWTH AFTER 4 DAYS 06/01/19 10:38 Aerobic Blood Culture - Preliminary Blood - Venous NO GROWTH AFTER 4 DAYS Anaerobic Blood Culture - Preliminary NO GROWTH AFTER 4 DAYS Med Orders - Current: Current Medications Acetaminophen (Tylenol) 650 mg PO Q4H PRN PRN Reason: Pain (Mild 1-3)/fever Al Hydroxide/Mg Hydroxide (Mag-Al Plus) 30 ml PO Q4H PRN PRN Reason: Nausea Aspirin (Halfprin) 81 mg PO DAILY [facility] Last Admin: 06/05/19 07:49 Dose: 81 mg Atorvastatin Calcium (Lipitor) 10 mg PO DAILY [facility] Last Admin: 06/05/19 07:51 Dose: 10 mg Cholecalciferol (Vitamin D3) 50 mcg PO DAILY [facility] Last Admin: 06/05/19 07:53 Dose: 50 mcg Glucagon (Glucagen) 1 mg IM ASDIRECTED PRN PRN Reason: Hypoglycemia Insulin Glargine (Lantus Solostar) 5 units SUBCUT DAILY [facility] Last Admin: 06/05/19 07:54 Dose: 5 units Lisinopril (Prinivil) 20 mg PO DAILY [facility] Last Admin: 06/05/19 07:49 Dose: 20 mg Nitrofurantoin Macrocrystals (Macrobid) 100 mg PO BID [facility] Stop: 06/09/19 08:01 Last Admin: 06/05/19 07:52 Dose: 100 mg Cyanocobalamin ( Vitamin B-12) [ Vitamin B-12] 1,000 Mcgown Med 1,000 mcg SQ Q30D [facility] Dapagliflozin Propanediol [Farxiga ] 10 MgOwn Med 10 mg PO DAILY [facility] Last Admin: 06/05/19 07:56 Dose: 10 mg Memantine Hcl/Donepezil Hcl [ Namzaric 7 Mg-10 Mg CapsuleOwn Med 1 tab PO DAILY [facility] Last Admin: 06/05/19 07:56 Dose: 1 tab Metformin Hcl [ Riomet] 1000mg/10ml* *Own Med 10 units PO DAILY [facility] Last Admin: 06/05/19 07:54 Dose: 10 units Semaglutide [Ozempic (] 1 MgOwn Med) 1 mg SQ Q7D [facility] Ondansetron HCl (Zofran) 4 mg IV Q6H PRN PRN Reason: Nausea/Vomiting Sodium Chloride (Saline Flush) 10 ml FLUSH BID [facility] Last Admin: 06/05/19 08:00 Dose: 10 ml Triamcinolone Acetonide (Triamcinolone Acetonide 0.1% Crm) 0 gm TOP BID PRN PRN Reason: RASH Vitamin B Complex/Vit C/Vit E/Zinc (Stress Formula With Zinc) 1 tab PO DAILY [facility] Last Admin: 06/05/19 07:49 Dose: 1 tab Discontinued Medications Ceftriaxone Sodium (Rocephin) 2 gm IVPUSH STAT ONE Stop: 06/01/19 11:20 Last Admin: 06/01/19 11:40 Dose: 2 gm Ceftriaxone Sodium (Rocephin) 1 gm IVPUSH DAILY [facility] Last Admin: 06/03/19 08:01 Dose: 1 gm Cephalexin (Keflex) 500 mg PO BID ONE Stop: 06/01/19 16:25 Last Admin: 06/01/19 18:14 Dose: 500 mg Sodium Chloride (Normal Saline) 1,000 mls @ 150 mls/hr IV ASDIRECTED ONE Stop: 06/01/19 18:30 Last Admin: 06/01/19 12:03 Dose: 150 mls/hr Magnesium Sulfate 2 gm/ Premix 50 mls @ 25 mls/hr IV ONETIME ONE Stop: 06/01/19 18:22 Last Admin: 06/01/19 18:14 Dose: 25 mls/hr Insulin Glargine (Lantus Solostar) 10 units SUBCUT DAILY [facility] Last Admin: 06/02/19 07:48 Dose: 10 units - Problem List Review Problem List Initiated/Reviewed/Updated: Yes
[2019-06-06] MEDS: atorvaSTATin 10 MG Tab PO SCH (07:47)
[2019-06-06] MEDS: Cholecalciferol (Vitamin D3) 25 MCG Tab PO SCH (07:47)
[2019-06-06] MEDS: Lisinopril 20 MG Tab PO SCH (07:47)
[2019-06-06] MEDS: METFORMIN HCL PO SCH (07:47)
[2019-06-06] MEDS: Aspirin 81 MG Tab.EC PO SCH (07:47)
[2019-06-06] MEDS: Nitrofurantoin Monohydrate/Macrocrystalline 100 MG Cap PO SCH ×2 (07:47→19:58)
[2019-06-06] MEDS: Insulin Glargine,Human Rec. Analog 100 Units/ML 3 ML Pen SUBCUT SCH (07:47)
[2019-06-06] MEDS: DAPAGLIFLOZIN PROPANEDIOL 10 MG PO SCH (07:48)
[2019-06-06] MEDS: MEMANTINE HCL PO SCH (07:48)
[2019-06-06] MEDS: DONEPEZIL HCL PO SCH (07:48)
[2019-06-06] MEDS: Sodium Chloride 0.9% 10 ML Syringe FLUSH SCH ×2 (07:48→22:13)
[2019-06-06] MEDS: Multivitamin, Stress Formula with Zinc Tab PO SCH (07:49)
[2019-06-06] MEDS ORDERED: SEMAGLUTIDE 1 MG SQ SCH (08:00)
--- NOTE | 2019-06-06 08:54 | PN ---
Progress Note for ANASTASIIA CHAPMAN Date: 06/06/2019 Room #: VM.211 SUBJECTIVE: The patient still feels a little bit weak, but she feels like she is getting stronger. She denies that she has seen things that other people do not notice, however, it has been noted that she has thought the lady was sitting there where there was a plate. It has been noted that her blood sugars have been coming under much better control. She has not had any problems of low sugars. OBJECTIVE: Vital Signs: Objectively, her weight is 48.5, which has stayed about stable since she has been admitted. Her blood pressure is 130/57, pulse is 91, respiratory rate is 16, and saturations are 100%. Skin: She has dressings over her excoriated areas. She is still slightly flushed on her face. Heart: Regular rate and rhythm. Lungs: Clear to auscultation. Abdomen: Soft. IMPRESSION: 1. Urinary tract infection with Escherichia coli. 2. Weakness secondary to infection. 3. Confusion, multifactorial. 4. Type 2 diabetes mellitus, poorly controlled. 5. Hypertension. 6. Dementia. PLAN: We will wait to talk with Materials Clerk today about placement of the patient either on swing bed versus [facility] care. The patient is on both Aricept and Namenda. She may need addition of Risperdal if she continues to have hallucinations and we would like to get psychiatry consult once she is over at the care center. GM06/06/2019 08:32:13 MODL: 06/06/2019 08:47:47 /[id number]
[2019-06-07] MEDS: METFORMIN HCL PO SCH (07:58)
[2019-06-07] MEDS: MEMANTINE HCL PO SCH (07:58)
[2019-06-07] MEDS: DAPAGLIFLOZIN PROPANEDIOL 10 MG PO SCH (07:58)
[2019-06-07] MEDS: DONEPEZIL HCL PO SCH (07:58)
[2019-06-07] MEDS: Aspirin 81 MG Tab.EC PO SCH (08:00)
[2019-06-07] MEDS: Cholecalciferol (Vitamin D3) 25 MCG Tab PO SCH (08:00)
[2019-06-07] MEDS: atorvaSTATin 10 MG Tab PO SCH (08:00)
[2019-06-07] MEDS: Nitrofurantoin Monohydrate/Macrocrystalline 100 MG Cap PO SCH (08:00)
[2019-06-07] MEDS: Multivitamin, Stress Formula with Zinc Tab PO SCH (08:01)
[2019-06-07] MEDS: Lisinopril 20 MG Tab PO SCH (08:01)
[2019-06-07] MEDS: Sodium Chloride 0.9% 10 ML Syringe FLUSH SCH (08:01)
[2019-06-07] MEDS: Insulin Glargine,Human Rec. Analog 100 Units/ML 3 ML Pen SUBCUT SCH (08:02)
--- NOTE | 2019-06-07 09:02 | PN ---
Progress Note for ANASTASIIA CHAPMAN Date: 06/07/2019 Room #: VM.211 SUBJECTIVE: The patient has been feeling more stronger. She has met with social media senior associate. They are working on obtaining a bed at [facility] for her. The patient enjoys it here. She does not quite understand why she cannot stay here. Explained to her that here would be more if she is benefitting by therapy that are acutely need to be monitored by physicians, but [facility] will be more of a home environment for her and more long- term. The patient understands. The patient denies any pain. Her skin has gotten better from excoriations after having been covered up with dressings. OBJECTIVE: Vital Signs: Objectively, her weight is 48.9 kg which is roughly the same as when she came in. Her blood pressure is 126/80, pulse is 59, respiratory rate 18, and saturations are 97%. Skin: Her skin has much improved excoriations on her legs. Her skin is much less flushed. Hygiene is better. HEENT: Pharynx is normal. Heart: Regular rate and rhythm. Lungs: Clear to auscultation. Abdomen: Soft and nontender. LABORATORY DATA: Her Accu-Cheks have been ranging between 98 to 280s which has greatly improved from her pre-admission. IMPRESSION: 1. Confusion, stabilized. 2. Urinary tract infection. 3. Dementia. 4. Type 2 diabetes mellitus, poorly controlled. 5. Excoriations. 6. Hypertension. PLAN: The patient will either go to [facility] today if a bed is available or probably if not she will need to go to swing bed at [facility] until a bed is available. GM06/07/2019 08:30:06 MODL: 06/07/2019 08:56:31 /[id number]
[2019-06-07 09:40] VITALS: BP 124/97; PULSE 97
[2019-06-07] MEDS ORDERED: Insulin Lispro 100 Unit/ML 3 ML KwikPen SUBCUT ONE (11:29)
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
[2019-06-21] MEDS ORDERED: CYANOCOBALAMIN SQ SCH (09:00)
== END 2019-06-07 13:13 | disposition swing bed (61) | DRG 690 ==
LOC: VM.ED 10:01 → VM.MS 12:04
PROVIDERS: ADMIT Family Medicine; ATTEND Family Medicine
DX: N39.0 Urinary tract infection, site not specified (principal); B96.20 Unspecified Escherichia coli [E. coli] as the cause of diseases classified elsewhere; R53.1 Weakness; H52.4 Presbyopia; H55.89 Other irregular eye movements; H52.209 Unspecified astigmatism, unspecified eye; H52.10 Myopia, unspecified eye; G30.1 Alzheimer's disease with late onset; F02.80 Dementia in other diseases classified elsewhere, unspecified severity, without behavioral disturbance, psychotic disturbance, mood disturbance, and anxiety; E11.65 Type 2 diabetes mellitus with hyperglycemia; I10 Essential (primary) hypertension; G31.84 Mild cognitive impairment of uncertain or unknown etiology; D64.9 Anemia, unspecified; E61.1 Iron deficiency; E55.9 Vitamin D deficiency, unspecified; L98.1 Factitial dermatitis; E78.00 Pure hypercholesterolemia, unspecified; M81.0 Age-related osteoporosis without current pathological fracture; L28.0 Lichen simplex chronicus; D50.9 Iron deficiency anemia, unspecified; H26.9 Unspecified cataract; E11.40 Type 2 diabetes mellitus with diabetic neuropathy, unspecified; Z79.84 Long term (current) use of oral hypoglycemic drugs; Z79.82 Long term (current) use of aspirin; Z79.899 Other long term (current) drug therapy; Z98.890 Other specified postprocedural states
CPT/HCPCS: 36415; 71045; 80053; 81001; 82962; 83605; 83735; 83880; 84100; 84484; 85025; 85610; 86140; 87040 ×2; 87081; 87086; 87186; 87880; 93005; 93010; 96361; 96374; 99284; 99285; J0696; J7030; 70450; 80048; 82150; 82607; 83690; 84443; 87088; 97161-GP; 97165-GO; A9270-GY; G0515-GO; J1815-GY; J3475

== ENCOUNTER 2019-06-07 12:43 | Inpatient (IN) | payer MEDICARE, BC, MEDICAID ==
[2019-06-07] MEDS ORDERED: Triamcinolone Acetonide 0.1% Crm 15 GM Tube TOP PRN (14:30)
[2019-06-08] MEDS: Aspirin 81 MG Tab.EC PO SCH (08:01)
[2019-06-08] MEDS: Insulin Glargine,Human Rec. Analog 100 Units/ML 3 ML Pen SUBCUT SCH (08:01)
[2019-06-08] MEDS: MEMANTINE HCL PO SCH (08:01)
[2019-06-08] MEDS: DONEPEZIL HCL PO SCH (08:01)
[2019-06-08] MEDS: atorvaSTATin 10 MG Tab PO SCH (08:01)
[2019-06-08] MEDS: DAPAGLIFLOZIN PROPANEDIOL 10 MG PO SCH (08:01)
[2019-06-08] MEDS: Cholecalciferol (Vitamin D3) 25 MCG Tab PO SCH (08:01)
[2019-06-08] MEDS: Lisinopril 20 MG Tab PO SCH (08:01)
[2019-06-08] MEDS: METFORMIN HCL PO SCH (08:02)
[2019-06-09 05:58] VITALS: BP 149/75
[2019-06-09] MEDS: Aspirin 81 MG Tab.EC PO SCH (07:44)
[2019-06-09] MEDS: Lisinopril 20 MG Tab PO SCH (07:44)
[2019-06-09] MEDS: Cholecalciferol (Vitamin D3) 25 MCG Tab PO SCH (07:44)
[2019-06-09] MEDS: atorvaSTATin 10 MG Tab PO SCH (07:44)
[2019-06-09] MEDS: DAPAGLIFLOZIN PROPANEDIOL 10 MG PO SCH (07:45)
[2019-06-09] MEDS: DONEPEZIL HCL PO SCH (07:45)
[2019-06-09] MEDS: MEMANTINE HCL PO SCH (07:45)
[2019-06-09] MEDS: METFORMIN HCL PO SCH (07:46)
[2019-06-09] MEDS: Insulin Glargine,Human Rec. Analog 100 Units/ML 3 ML Pen SUBCUT SCH (07:46)
--- NOTE | 2019-06-09 11:08 | DISCH ---
PRIMARY DIAGNOSES: 1. Confusion, multifactorial. 2. Urinary tract infection with Escherichia coli infection. 3. Weakness secondary to infection. 4. Alzheimer's dementia. 5. Type 2 diabetes mellitus, poorly controlled. 6. Hypertension. 7. Vitamin B12 deficiency. 8. Neurodermatitis with excoriations on skin. SUMMARY OF HISTORY AND PHYSICAL: She had been admitted to acute care on 06/01/2019 as she was weak in her apartment. She called 911. She was brought in by ambulance. Her apartment was noted to be very disheveled. Her hygiene was very poor. The patient had been struggling with her diabetic medications and trying to work with [facility] to make sure she get her medications. The patient was very suspicious and paranoid, not wanting to let others come into her apartment to help her. While on acute care, she was found to be slightly dehydrated as well as a bladder infection. The patient was placed then on swing bed because of inability to live home alone. She need to continue therapies for strengthening. She was noted to have problems with dementia. OT saw her and she was felt to need 24-hour supervision. Her mini-mental status exam had been 21/30 and her ACL screen shows 3.5/5.8. No lab work was done on swing bed other than watching her blood sugars. She has had lab work done recently at the time of transfer. Please refer to discharge summary from acute care. I did discuss with the patient about code level status and she did change her mind to be do not resuscitate, do not intubate. MEDICATIONS AT THE TIME OF TRANSFER: 1. Aspirin 81 mg 1 pill daily. 2. Vitamin D 2000 units daily. 3. Metformin 500 mg per 5 mL. She gets 10 mL daily (due to difficulty swallowing large pills). 4. Ozempic 1 mg subcu once a week. 5. Triamcinolone ointment 0.5% twice a day as needed to skin. 6. Vitamin B12 1000 mcg IM monthly. 7. Farxiga 10 mg 1 pill daily. 8. Lipitor 10 mg 1 pill daily. 9. Namzaric 7/10 (Namenda/Aricept) 1 pill daily. 10.Lisinopril 20 mg 1 pill daily. 11.Lantus 5 units subcu daily. 12.To note, the patient had been on glipizide XL 10 mg daily, but this was discontinued while on acute care as her blood sugars had come under better control. The patient will need to be assessed by Psychiatry for her dementia with behavior concerns. She may need consideration of an antipsychotic to be added to her medication regime. The patient has no immediate family in the area. GM06/09/2019 08:35:57 MODL: 06/09/2019 11:02:05 /[id number]
[2019-06-13] MEDS ORDERED: SEMAGLUTIDE 1 MG SQ SCH (08:00)
[2019-06-21] MEDS ORDERED: Cyanocobalamin (Vitamin B12) 1,000 MCG/ML SDV IM SCH (09:00)
== END 2019-06-09 10:30 | DRG 690 ==
LOC: VM.MS 13:10
PROVIDERS: ADMIT Family Medicine; ATTEND Family Medicine
DX: N39.0 Urinary tract infection, site not specified (principal); R41.0 Disorientation, unspecified; B96.20 Unspecified Escherichia coli [E. coli] as the cause of diseases classified elsewhere; G30.9 Alzheimer's disease, unspecified; F02.80 Dementia in other diseases classified elsewhere, unspecified severity, without behavioral disturbance, psychotic disturbance, mood disturbance, and anxiety; E11.9 Type 2 diabetes mellitus without complications; Z66 Do not resuscitate; I10 Essential (primary) hypertension; E53.8 Deficiency of other specified B group vitamins; E86.0 Dehydration; L28.0 Lichen simplex chronicus; H54.7 Unspecified visual loss; Z91.83 Wandering in diseases classified elsewhere; Z79.82 Long term (current) use of aspirin; Z79.899 Other long term (current) drug therapy; Z79.84 Long term (current) use of oral hypoglycemic drugs
CPT/HCPCS: 82962; 97161-GP; A9270-GY